=== PATIENT | female | born 1970 | race Asian ===

== ENCOUNTER 2021-03-30 15:04 | Emergency (ER) | payer MEDICAID ==
[~2021-03-30] VITALS: Ht 157.5 cm; Wt 61.0 kg
[2021-03-30] MEDS ORDERED: SODIUM CHLORIDE 0.9% 1,000 ML IV ONE (16:00)
[2021-03-30 17:00] LABS: HEMATOCRIT. 37.4 % (36.0-48.0); HEMOGLOBIN. 13.3 g/dL (12.0-16.0); MEAN CORPUSCULAR HEMOGLOBIN 36.2 pg (28.0-32.0); MEAN CORPUSCULAR VOLUME 101.7 fL (81.0-99.0); MEAN PLATELET VOLUME 9.1 fl (7.4-10.4); PLATELET 83 x1000/uL (130-400); RED BLOOD CELL COUNT 3.67 mill/uL (4.2-5.4); RED CELL DISTRIBUTION WIDTH 13.5 % (11.6-14.6)
[2021-03-30 17:11] LABS: CHLORIDE 95 mEq/L (98-107)
[2021-03-30 17:16] LABS: ETHANOL BLOOD < 10 mg/dL
[2021-03-30] MEDS ORDERED: POTASSIUM CHLORIDE 20MEQ TABLET SR PO ONE (17:30)
[2021-03-30 18:32] VITALS: BP 136/89
[2021-03-30 20:01] LABS: PLATELET ESTIMATE DECREASED
[2021-04-01] MEDS ORDERED: LEVO500T89 MT (10:55)
[2021-04-01] MEDS ORDERED: KEPP500 MT (10:55)
[2021-04-01] MEDS ORDERED: THIA100T72 MT (10:55)
== END 2021-03-30 18:16 | disposition home or self-care (01) ==
LOC: ER 15:04
DX: G40.909 Epilepsy, unspecified, not intractable, without status epilepticus (principal); I65.23 Occlusion and stenosis of bilateral carotid arteries; R00.0 Tachycardia, unspecified; E87.6 Hypokalemia; Z59.0 Homelessness
CPT/HCPCS: 36415; 70450; 80053; 80320; 82962; 85025; 93005; 96360; 96361; 99285; J7030; Z7610; G0480